=== PATIENT | female | born 1970 ===

== ENCOUNTER 2022-11-08 05:00 | Day surgery (SDC) | payer OTHER ==
[~2022-11-08] VITALS: Ht 152.4 cm; Wt 68.9 kg
[2022-11-08] MEDS ORDERED: ZOFRAN8 MG PO (09:44)
[2022-11-08] MEDS ORDERED: PERCOCET 5-3251 EACH PO (09:44)
[2022-11-08] MEDS ORDERED: COLACE100 MG PO (09:44)
[2022-11-08] MEDS ORDERED: IBU800 MG PO (09:44)
[2022-11-08] MEDS ORDERED: SIMETHICONE80 MG PO (09:44)
== END 2022-11-08 16:00 | disposition home or self-care (01) ==
LOC: CIR.AMB 05:00
PROVIDERS: ATTEND Student in an Organized Health Care Education/Training Program
DX: N83.292 Other ovarian cyst, left side (principal); N83.8 Other noninflammatory disorders of ovary, fallopian tube and broad ligament; N73.6 Female pelvic peritoneal adhesions (postinfective); R10.2 Pelvic and perineal pain; I10 Essential (primary) hypertension; Z20.822 Contact with and (suspected) exposure to COVID-19